=== PATIENT | male | born 1950 | race Caucasian/White ===

== ENCOUNTER 2019-08-27 07:59 | Inpatient (IN) | payer MEDICARE ==
[2019-08-27] MEDS ORDERED: SODIUM CHLORIDE 0.9% 1,000 ML IV STA ×2 (08:49)
[2019-08-27] MEDS ORDERED: SODIUM CHLORIDE 0.9% 500 ML 500 ML IV STA (08:49)
[2019-08-27 08:55] LABS: Glucose,Whole Blood 115 mg/dL (75-99)
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
[2019-08-27 09:14] LABS: Basophils # (A) 0.2 k/uL (0-0.2); Basophils % (A) 2 %; Eosinophils # (A) 0.1 k/uL (0-0.7); Eosinophils % (A) 1 %; HCT 35.9 % (39.0-53.0); HGB 11.4 gm/dL (13.0-17.5); Lymphocytes # (A) 0.4 k/uL (1.0-4.8); Lymphocytes % (A) 5 %; MCHC 31.8 g/dL (31.0-37.0); MCV 91.3 fL (80.0-100.0); Mean Platelet Volume 8.9; Monocytes # (A) 0.4 k/uL (0-1.0); Monocytes % (A) 5 %; Neutrophils # (A) 6.4 k/uL (1.3-7.7); Neutrophils % (A) 84 %; Platelet Count 110 k/uL (150-450); RBC 3.93 m/uL (4.30-5.90); WBC 7.6 k/uL (3.8-10.6)
[2019-08-27 09:24] LABS: AST 48 U/L (17-59); African American GFR (CKD) 44 (>60 ml/min/1.73 sqM); Albumin 3.7 g/dL (3.5-5.0); Anion Gap 11 mmol/L; Blood Urea Nitrogen 32 mg/dL (9-20); Calcium 8.2 mg/dL (8.4-10.2); Carbon Dioxide 20 mmol/L (22-30); Chloride 103 mmol/L (98-107); Glucose 115 mg/dL (74-99); Non-African American GFR(CKD) 38 (>60 ml/min/1.73 sqM); Potassium 4.6 mmol/L (3.5-5.1); Sodium 134 mmol/L (137-145); Total Bilirubin 0.8 mg/dL (0.2-1.3)
[2019-08-27 09:25] LABS: ALT 21 U/L (4-49); Alcohol <10 mg/dL; Alkaline Phosphatase 52 U/L (38-126)
[2019-08-27 09:33] LABS: INR 1.3 (<1.2); Prothrombin Time 13.4 sec (9.0-12.0)
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
--- NOTE | 2019-08-27 10:31 | XR ---
EXAMINATION TYPE: XR chest 2V DATE OF EXAM: 08/27/2019 COMPARISON: NONE TECHNIQUE: PA and lateral views submitted. HISTORY: Weakness FINDINGS: The lungs are clear and there is no pneumothorax, pleural effusion, or focal pneumonia. Cardiac dev ice with the cardiomegaly noted. Cardiac valve replacement surgery noted. Hypertrophic and degenerati ve change of the spine. Atherosclerotic change aorta. Arthropathy of the shoulders. Suspect a small g ranuloma within the left lower lobe. IMPRESSION: 1. Cardiomegaly.
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
[2019-08-27] MEDS ORDERED: NITROGLYCERIN SL TABS 0.4 MG TAB SUBLINGUAL PRN (11:44)
[2019-08-27 16:33] LABS: Appearance,Urine Clear (Clear); Bilirubin,Urine Negative (Negative); Blood,Urine Negative (Negative); Color,Urine Yellow; Glucose,Urine (UA) Negative (Negative); Ketones,Urine Negative (Negative); Leukocyte Esterase,Urine Negative (Negative); Mucus,Urine Rare /hpf; Nitrite,Urine Negative (Negative); PH, Urine 5.5 (5.0-8.0); Protein,Urine 1+ (Negative); RBC,Urine <1 /hpf (0-5); Specific Gravity,Urine 1.017 (1.001-1.035); Squamous Epithelial Cell,Urine <1 /hpf (0-4); Urobilinogen,Urine <2.0 mg/dL (<2.0); WBC,Urine 2 /hpf (0-5)
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
[2019-08-27 21:41] LABS: INR 1.5 (<1.2); Prothrombin Time 14.6 sec (9.0-12.0)
[2019-08-27] MEDS: WARFARIN 5 MG TAB PO SCH (22:28)
[2019-08-27] MEDS: CARVEDILOL 6.25 MG TAB PO SCH (22:28)
[2019-08-28 03:10] LABS: Cholesterol 98 mg/dL (<200); HDL Cholesterol 30 mg/dL (40-60); LDL Cholesterol,Calculated 48 mg/dL (0-99); Triglycerides 98 mg/dL (<150)
[2019-08-28] MEDS: LEVOTHYROXINE 50 MCG TAB PO SCH (05:44)
[2019-08-28] MEDS: LISINOPRIL 2.5 MG TAB PO SCH (08:59)
[2019-08-28] MEDS: CARVEDILOL 6.25 MG TAB PO SCH ×2 (08:59→17:47)
[2019-08-28] MEDS: ASPIRIN 325 MG TAB PO SCH (08:59)
[2019-08-28] MEDS: ISOSORBIDE MONONITRATE ER 30 MG TAB.ER.24H PO SCH (08:59)
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
--- NOTE | 2019-08-28 14:06 | PN ---
PROGRESS NOTE CHIEF COMPLAINT: Syncopal episode. HISTORY OF PRESENT ILLNESS: This gentleman is doing well and he has had no lightheadedness, dizziness, sensation of syncope, neurologic problems, palpitations, etc. He has been seen by Cardiology. His troponins are elevated. PHYSICAL EXAMINATION: Vital signs are normal and the chest is clear. The cardiac exam is normal and the abdomen is soft, nontender. Neurologically, he is intact. IMPRESSION: 1. Syncopal episode. 2. Status post recent TAVR. 3. History of coronary artery disease. 4. Atrial fibrillation. PLAN: His pacemaker is being interrogated and after that, Cardiology will make a decision as to whether not any further treatment at this time will be necessary. MMODL / IJN: [id number] /
[2019-08-28] MEDS: WARFARIN 5 MG TAB PO SCH (17:47)
[2019-08-28] MEDS ORDERED: ACETAMINOPHEN TAB 325 MG TAB PO PRN (22:20)
[2019-08-28] MEDS ORDERED: guaiFENesin SYRUP 100MG/5ML 200 MG/10 ML CUP PO PRN (22:20)
[2019-08-29] MEDS: LEVOTHYROXINE 50 MCG TAB PO SCH (05:41)
[2019-08-29] MEDS: LISINOPRIL 2.5 MG TAB PO SCH (07:21)
[2019-08-29] MEDS: ASPIRIN 325 MG TAB PO SCH (07:21)
[2019-08-29] MEDS: ISOSORBIDE MONONITRATE ER 30 MG TAB.ER.24H PO SCH (07:21)
[2019-08-29] MEDS: CARVEDILOL 6.25 MG TAB PO SCH (07:21)
[2019-08-29 07:33] VITALS: BP 118/74; PULSE 73; RESP 16; TEMP 99.6
[2019-08-29 08:48] LABS: INR 1.6 (<1.2); Prothrombin Time 16.1 sec (9.0-12.0)
--- NOTE | 2019-08-29 11:00 | ECHOF ---
Referral Reason:syncope MEASUREMENTS -------- HEIGHT: 185.4 cm WEIGHT: 74.4 kg BP: 92/57 RVIDd: 3.3 cm (< 3.3) IVSd: 1.5 cm (0.6 - 1.1) LVIDd: 6.9 cm (3.9 - 5.3) LVPWd: 1.3 cm (0.6 - 1.1) IVSs: 2.0 cm LVIDs: 4.8 cm LVPWs: 1.9 cm LA Diam: 4.3 cm (2.7 - 3.8) LAESV Index (A-L): 55.73 ml/m Ao Diam: 2.4 cm (2.0 - 3.7) AV Cusp: 1.9 cm (1.5 - 2.6) MV E Theron: 1.55 m/s MV DecT: 400 ms MV A Theron: 0.74 m/s MV E/A Ratio: 2.10 AV maxP.53 mmHg AV meanP.13 mmHg RAP: 5.00 mmHg RVSP: 36.83 mmHg FINDINGS -------- Paced rhythm. This was a technically adequate study. The left ventricle is severely dilated. There is moderate concentric left ventricular hypertrophy. Overall left ventricular systolic function is moderately impaired with, an EF between 35 - 40 %. Basal inferior LV wall motion is hypokinetic. Basal inferoseptal LV wall motion is hypokinetic. The right ventricle is mildly enlarged. LA is severely dilated >40 ml/m2 The right atrium is normal in size. Aneurysmal Interatrial septum. Peak/mean gradient across the Aortic Valve is 17.53mmHg / 9.13mmHg. There is mild zurdo-prosthetic r egurgitation of the bioprosthetic aortic valve. TAVR PROCEDURE The mitral valve leaflets are mildly thickened. Mild mitral annular calcification present. Modera [id number]-vx-[id number] mitral regurgitation is present. Mild tricuspid regurgitation present. There is mild pulmonary hypertension. The right ventricular systolic pressure, as measured by Doppler, is 36.83mmHg. Trace/mild (physiologic) pulmonic regurgitation. The aortic root size is normal. Normal inferior vena cava with normal inspiratory collapse consistent with estimated right atrial pre ssure of 5 mmHg. There is no pericardial effusion. CONCLUSIONS -------- 1. Paced rhythm. 2. This was a technically adequate study. 3. The left ventricle is severely dilated. 4. There is moderate concentric left ventricular hypertrophy. 5. Overall left ventricular systolic function is moderately impaired with, an EF between 35 - 40 %. 6. Basal inferior LV wall motion is hypokinetic. 7. Basal inferoseptal LV wall motion is hypokinetic. 8. The right ventricle is mildly enlarged. 9. LA is severely dilated >40 ml/m2 10. The right atrium is normal in size. 11. Aneurysmal Interatrial septum. 12. Peak/mean gradient across the Aortic Valve is 17.53mmHg / 9.13mmHg. 13. There is mild zurdo-prosthetic regurgitation of the bioprosthetic aortic valve. 14. TAVR PROCEDURE 15. The mitral valve leaflets are mildly thickened. 16. Mild mitral annular calcification present. 17. Mild tricuspid regurgitation present. 18. There is mild pulmonary hypertension. 19. The right ventricular systolic pressure, as measured by Doppler, is 36.83mmHg. 20. Trace/mild (physiologic) pulmonic regurgitation. 21. The aortic root size is normal. 22. Normal inferior vena cava with normal inspiratory collapse consistent with estimated right atrial pressure of 5 mmHg. 23. There is no pericardial effusion. ACTIVATED [employer]UDGE ATTENDANT: Fatuma Carson RDCS
--- NOTE | 2019-08-29 12:56 | DS ---
DISCHARGE SUMMARY CHIEF COMPLAINT: Syncope. HISTORY OF PRESENT ILLNESS AND PHYSICAL EXAM: Details of this man's history and physical can be found in the initial workup. LABORATORY STUDIES: While he was in a hospital he had laboratory studies, details of which can be found in the laboratory section of his chart. COURSE IN THE HOSPITAL: After admission he was placed on bedrest, started on intravenous fluids and placed on telemetry. He was seen by Cardiology. Pacemaker was interrogated. There was no evidence that he had had an arrhythmias that caused the syncopal event and accident. He was stable and doing well and he was to follow up with his scalloper tomorrow. He will go home on his usual activity, diet and medication and will follow up with his scalloper. He will be asked to come into our office for post hospital check sometime this week. FINAL DIAGNOSES: 1. Syncopal episode. 2. Dehydration. 3. Diarrhea. 4. Status post TAVR. 5. Status post pacemaker implantation. 6. Atrial fibrillation. OPERATION: None. CONSULTATION: Cardiology. He is improved. ROXI / CIRILON: [id number] /
--- NOTE | 2019-08-29 12:57 | P.PN ---
Subjective This is a 68-year-old male past medical history significant for coronary artery disease, valvular heart disease status post TAVR, ischemic cardiomyopathy, hypertension, dyslipidemia and paroxysmal atrial fibrillation on fci anticoagulation. He follows with a tile machine operator out of [facility] in [place]. He had TAVR procedure done 5 months ago. He is seen and examined sitting up in bed in no acute distress. He denies chest pain, dizziness, shortness of breath or palpitations. Echocardiogram obtained reveals impaired LV systolic function with ejection fraction 35-40%, basal inferior, basal inferoseptal wall motion hypokinesia, severely dilated left atrium, aneurysmal interatrial septum, mean gradient across the aortic valve is 9 mmHg with mild. Prostatic regurgitation, mild tricuspid regurgitation, moderate to severe mitral regurgitation and mild pulmonary hypertension. Blood pressure 118/74 heart rate 73 afebrile maintaining oxygen saturation on room air. Pacemaker interrogation is unremarkable. No acute events at the time of the accident. GENERAL: Well-appearing, well-nourished and in no acute distress. NECK: Supple without JVD or thyromegaly. LUNGS: Breath sounds clear to auscultation bilaterally. Respiration equal and unlabored. No wheezes, rales or rhonchi. HEART: Regular rate and rhythm with systolic ejection murmur at the base and apex, no rubs or gallops. S1 and S2 heard. EXTREMITIES: Normal range of motion, no edema. No clubbing or cyanosis. Peripheral pulses intact. ASSESSMENT Syncope secondary to diarrhea and dehydration Elevated troponin secondary to renal insufficiency Chronic systolic heart failure, currently euvolemic Paroxysmal atrial fibrillation on long-term anticoagulation History of AICD placement Hypertension Dyslipidemia History of coronary artery disease status post stent placement Daily alcohol abuse PLAN Stable from a cardiac perspective. The patient states he has an appointment with his tile machine operator tomorrow to assess his valve. He would like to have any further cardiac workup done at that time. Complete alcohol cessation recommended. Nurse Practitioner note has been reviewed, I agree with a documented findings and plan of care. Patient was seen and examined. Objective - Vital Signs Vital signs: Vital Signs Temp 99.6 F 08/29/19 07:31 Pulse 73 08/29/19 07:31 Resp 16 08/29/19 07:31 BP 118/74 08/29/19 07:31 Pulse Ox 98 08/29/19 07:31 Intake & Output 08/28/19 08/29/19 08/29/19 18:59 06:59 18:59 Intake Total 740 600 Balance 740 600 Weight 75.5 kg Intake: Oral 740 600 Other: Voiding Method Toilet Toilet # Voids 2 - Labs CBC & Chem 7: 08/27/19 09:00 08/27/19 09:00 Labs: Abnormal Lab Results - Last 24 Hours (Table) 08/29/19 Range/Units 08:07 PT 16.1 H (9.0-12.0) sec INR 1.6 H (<1.2) Microbiology - Last 24 Hours (Table) 08/27/19 09:00 Blood Culture - Preliminary Blood No Growth after 48 hours
[2019-08-29] MEDS ORDERED: WARFARIN 7.5 MG TAB PO ONE (18:00)
[2019-08-30] MEDS ORDERED: WARFARIN 5 MG TAB PO SCH (18:00)
[2019-09-02] MEDS ORDERED: WARFARIN 7.5 MG TAB PO SCH (18:00)
== END 2019-08-29 12:22 | disposition home or self-care (01) | DRG 641 ==
LOC: EDBD → EC 07:59 → 3SCARD 12:47 → OBSVTOIN 08-28 10:21 → INTOOBSV 08-28 10:21 → 4SSUR 08-28 22:15
PROVIDERS: ADMIT Family Medicine; ATTEND Family Medicine
PROC: 4B02XSZ Measurement of Cardiac Pacemaker, External Approach (ICD-10-PCS; principal; 2019-08-28)
DX: E86.0 Dehydration (principal); I50.22 Chronic systolic (congestive) heart failure; I27.20 Pulmonary hypertension, unspecified; N28.9 Disorder of kidney and ureter, unspecified; I11.0 Hypertensive heart disease with heart failure; I95.9 Hypotension, unspecified; D64.9 Anemia, unspecified; E03.9 Hypothyroidism, unspecified; E78.5 Hyperlipidemia, unspecified; I48.0 Paroxysmal atrial fibrillation; F10.10 Alcohol abuse, uncomplicated; R19.7 Diarrhea, unspecified; R55 Syncope and collapse; I25.10 Atherosclerotic heart disease of native coronary artery without angina pectoris; I25.5 Ischemic cardiomyopathy; R79.89 Other specified abnormal findings of blood chemistry; I08.1 Rheumatic disorders of both mitral and tricuspid valves; Z79.01 Long term (current) use of anticoagulants; Z79.890 Hormone replacement therapy; Z79.899 Other long term (current) drug therapy; Z95.0 Presence of cardiac pacemaker; Z95.5 Presence of coronary angioplasty implant and graft; Z95.2 Presence of prosthetic heart valve; Z86.73 Personal history of transient ischemic attack (TIA), and cerebral infarction without residual deficits; V47.5XXA Car driver injured in collision with fixed or stationary object in traffic accident, initial encounter; Y92.410 Unspecified street and highway as the place of occurrence of the external cause
CPT/HCPCS: 36415; 70450; 71046; 71250; 72125; 74176; 80053; 80061; 80320; 81001; 83605; 83735; 84100; 84484; 85025; 85610; 85730; 87040; 87324; 93005; 93306; 96360; 96361; 99285